=== PATIENT | female | born 1955 | race Caucasian/White ===

== ENCOUNTER → 2016-08-23 | Outpatient (CLI) | payer BC ==
[2016-08-23 08:05] LABS: ADD SCAN DIFF NO
[2016-08-23 08:14] LABS: ADD UMIC YES; URINE BILIRUBIN (Dip) NEGATIVE (NEGATIVE); URINE BLOOD (Dip) 1+ (NEGATIVE); URINE COLOR LT. YELLOW (YELLOW); URINE GLUCOSE (Dip) NEGATIVE (NEGATIVE); URINE KETONES (Dip) NEGATIVE (NEGATIVE); URINE LEUKOCYTE ESTERASE (Dip) NEGATIVE (NEGATIVE); URINE NITRITE (Dip) NEGATIVE (NEGATIVE); URINE TOTAL PROTEIN (Dip) NEGATIVE (NEGATIVE); URINE UROBILINOGEN (Dip) 0.2 E.U./dL (0.1-1.0)
[2016-08-23 08:15] LABS: BASOPHIL # 0.1 10^3/ul (0.0-0.1); BASOPHILS % 0.8 % (0.0-2.0); EOSINOPHILS # 0.2 10^3/ul (0.0-0.5); EOSINOPHILS % 3.4 % (0.0-7.0); HEMATOCRIT 48.4 % (37.0-47.0); HEMOGLOBIN 15.6 g/dl (12.0-16.0); LYMPHOCYTES # 1.7 10^3/ul (0.8-2.9); LYMPHOCYTES % 24.4 % (15.0-51.0); MEAN CORPUSCULAR HEMOGLOBIN 29.4 pg (29.0-33.0); MEAN CORPUSCULAR HGB CONC 32.2 g/dl (32.0-37.0); MEAN CORPUSCULAR VOLUME 91.1 fl (82.0-101.0); MEAN PLATELET VOLUME 10.8 fl (7.4-10.4); MONOCYTE # 0.5 10^3/ul (0.3-0.9); MONOCYTES % 6.4 % (0.0-11.0); NEUTROPHIL # 4.6 10^3/ul (1.6-7.5); NEUTROPHILS % 64.9 % (39.0-77.0); PLATELET COUNT 205 10^3/UL (140-415); RED BLOOD COUNT 5.31 10^6/ul (4.20-5.40); WHITE BLOOD COUNT 7.1 10^3/ul (4.8-10.8)
[2016-08-23 08:36] LABS: ALBUMIN 4.2 g/dl (3.3-4.9); BILIRUBIN,INDIRECT 0.5 mg/dl (0-1.1); BILIRUBIN,TOTAL 0.5 mg/dl (0.2-1.3); CALCIUM 9.2 mg/dl (8.4-10.2); CREATININE 0.68 mg/dl (0.44-1.00); POTASSIUM 3.6 mmol/L (3.5-5.1); TOTAL PROTEIN 7.4 g/dl (6.1-8.1)
[2016-08-23 08:37] LABS: ALBUMIN/GLOBULIN RATIO 1.31; CHOL/HDL RATIO 2.6 RATIO
[2016-08-23 09:05] LABS: BACTERIA,URINE FEW; URINE RBCS 0-2 /HPF (0)
[2016-08-23 09:06] LABS: THYROID STIMULATING HORMONE 0.987 MIU/L (0.465-4.680)
== END | disposition home or self-care (01) ==
LOC: LAB 07:28
PROVIDERS: ATTEND Internal Medicine
DX: Z00.00 Encounter for general adult medical examination without abnormal findings (principal); I25.10 Atherosclerotic heart disease of native coronary artery without angina pectoris; I10 Essential (primary) hypertension; E78.5 Hyperlipidemia, unspecified; E55.9 Vitamin D deficiency, unspecified
CPT/HCPCS: 80053; 80061; 81001; 81003; 82652; 83036; 84443; 85025

== ENCOUNTER → 2017-01-06 | Outpatient (CLI) | payer BC ==
--- NOTE | 2017-01-07 15:17 | RADRPT ---
PROCEDURE: US bilateral lower extremity arteries. CLINICAL INDICATION: Bilateral leg pain. History of left femoral artery stent placement for sarah ication. TECHNIQUE: Multiple longitudinal and transverse images of the bilateral lower extremity arteries w ere obtained with ga scale, pulsed Doppler, and color Doppler imaging. COMPARISON: None. FINDINGS: Right WRIST CLOSER:131 cm/sec PSFA:96 cm/sec MSFA:107 cm/sec DSFA:89 cm/sec POP:49 cm/sec SIEBEL ARCHITECT:35 cm/sec DPA:49 cm/sec Left WRIST CLOSER:103 cm/sec PSFA:144 cm/sec MSFA:79 cm/sec DSFA:74 cm/sec POP:59 cm/sec SIEBEL ARCHITECT:64 cm/sec DPA:31 cm/sec The right ankle-brachial index is 1.2 and the left ankle-brachial index is 1.2. There is normal triphasic flow throughout bilaterally. Minimal plaque is present bilaterally in the femoral systems. There is no significant plaque, stenosis, or occlusion. IMPRESSION: 1. Mild plaque formation without evidence for hemodynamically significant stenosis or occlusion. RPTAT: QQ .Dewayne Tomas MD, MD Date Time Electronically viewed and signed by .Dewayne Tomas MD, on 01/07/2017 15:16 .R/
--- NOTE | 2017-01-08 15:49 | RADRPT ---
Echocardiogram Report Patient Name: JOANN DELEON Gender: Female Date: 1955 Study Date: 06-Jan-2017 Commodities Manager: Raymond Gibbons RDCS Location: EKG Ref. Physician: GEOVANNY AC Quality: Good Procedures: Transthoracic echocardiogram with complete 2D, M-Mode, and doppler examination. Indications: Evaluate Left Ventricular function. 2D/M Mode Doppler Measurement Value Normal Ranges Measurement Value Normal Ranges LVIDd 2D 5.2 3.5 - 5.6 cm AV Peak Jorge 1.3 m/sec LVIDs 2D 2.7 2.1 - 4.1 cm AV Peak PG 6.8 mmHg LVPWd 2D 0.8 0.6 - 1.1 cm LVOT Peak Jorge 0.9 m/sec IVSd 2D 0.7 0.6 - 1.1 cm LVOT Peak PG 3.3 mmHg AoR Diam 2D 2.8 2.0 - 3.7 cm MV E Peak Jorge 0.8 m/sec EDV 2D 129.8 cm3 MV A Peak Jorge 0.5 m/sec ESV 2D 20.0 cm3 MV E/A 1.5 LA Dimen 2D 3.4 2.3 - 4.0 cm MV Decel Time 226 msec MV Decel Marion 4 MV E/A 1.5 TR Peak Jorge 2.1 m/sec TR Peak PG 17.0 mmHg RVSP 20.0 mmHg Findings Left Ventricle: Normal left ventricular systolic function. Normal left ventricular cavity size. Normal left ventricular wall thickness. Ejection fraction is visually estimated at 65 %. Tissue Doppler/Mitral Doppler indices are within normal limits. Right Ventricle: Normal right ventricular size. Normal right ventricular systolic function. Left Atrium: The left atrium is normal in size. Right Atrium: The right atrium is normal in size. Mitral Valve: Normal appearance and function of the mitral valve with trace physiologic regurgitation. Mild mitral valve regurgitation. Aortic Valve: Normal appearance of the aortic valve. No significant aortic stenosis or insufficiency. Trileaflet aortic valve. Tricuspid Valve: Normal appearance of the tricuspid valve. Normal right ventricular systolic pressure. Estimated peak PA systolic pressure 20 mmHg. There is trace tricuspid regurgitation. Pulmonic Valve: Normal pulmonic valve appearance. Pericardium: Normal pericardium with no significant pericardial effusion. Aorta: Normal aortic root. IVC: Normal size and normal respiratory collapse consistent with normal right atrial pressure. Conclusions 1.Normal left ventricular systolic function. Normal left ventricular cavity size. Normal left ventricular wall thickness. Ejection fraction is visually estimated at 65 %. Tissue Doppler/Mitral Doppler indices are within normal limits. 2.Normal right ventricular size. Normal right ventricular systolic function. 3.Normal appearance of the aortic valve. No significant aortic stenosis or insufficiency. Trileaflet aortic valve. 4.Normal appearance of the tricuspid valve. Normal right ventricular systolic pressure. Estimated peak PA systolic pressure 20 mmHg. There is trace tricuspid regurgitation. 5.Normal size and normal respiratory collapse consistent with normal right atrial pressure. 6.Normal aortic root. 7.No Vegetation, masses, or thrombi seen. Electronically Signed By: Geovanny Ac 08-Jan-2017 15:49:18 -0700 Patient Name: JOANN DELEON Study Date: 06-Jan-2017 [id number]
== END | disposition home or self-care (01) ==
LOC: EKG 12:54
PROVIDERS: ATTEND Internal Medicine Interventional Cardiology
DX: I73.9 Peripheral vascular disease, unspecified (principal); I10 Essential (primary) hypertension; I25.10 Atherosclerotic heart disease of native coronary artery without angina pectoris; R00.2 Palpitations
CPT/HCPCS: 93306; 93922

== ENCOUNTER → 2017-03-26 | Outpatient (CLI) | payer BC ==
--- NOTE | 2017-03-26 07:51 | RADRPT ---
PROCEDURE: Left knee radiographs. CLINICAL INDICATION: Lateral left knee pain. TECHNIQUE: Three views. Frontal, lateral, and oblique. COMPARISON: No prior studies are available for comparison. FINDINGS: There is no fracture or dislocation. The soft tissues are normal. Articular surfaces are intact. There is no lytic or blastic lesion. There is no radiopaque foreign body. IMPRESSION: 1. Normal images of the left knee. RPTAT: QQ .Dewayne Tomas MD, MD Date Time Electronically viewed and signed by .Dewayne Tomas MD, on 03/26/2017 07:51 .R/
== END | disposition home or self-care (01) ==
LOC: RAD 07:18
PROVIDERS: ATTEND Internal Medicine
DX: M25.562 Pain in left knee (principal)
CPT/HCPCS: 73562

== ENCOUNTER → 2017-05-28 | Outpatient (CLI) | END | disposition home or self-care (01) ==

== ENCOUNTER → 2017-10-07 | Outpatient (CLI) | END | disposition home or self-care (01) ==

== ENCOUNTER → 2018-06-22 | Outpatient (CLI) | payer BC | END | disposition home or self-care (01) | LOC: VAS 13:54 | PROVIDERS: ATTEND Internal Medicine Interventional Cardiology | DX: I73.9 Peripheral vascular disease, unspecified (principal) | CPT/HCPCS: 93970 ==

== ENCOUNTER → 2018-10-13 | Outpatient (CLI) | payer BC | END | disposition home or self-care (01) | LOC: LAB 07:05 | PROVIDERS: ATTEND Internal Medicine | DX: I25.10 Atherosclerotic heart disease of native coronary artery without angina pectoris (principal); I10 Essential (primary) hypertension; E78.5 Hyperlipidemia, unspecified; E55.9 Vitamin D deficiency, unspecified | CPT/HCPCS: 80053; 80061; 81001; 82306; 84443; 85025; 85651; 86140 ==